=== PATIENT | male | born 1970 | race Caucasian/White ===

== ENCOUNTER 2016-12-01 17:00 | Emergency (ER) | payer OTHER ==
[~2016-12-01] VITALS: Ht 162.5 cm; Wt 68.0 kg
[~2016-12-01 17:00] MED LIST: ANUSOL-HC25 MG R; CIPROFLOXACIN500 MG PO; CYCLOBENZAPRINE10 MG PO; FENOFIBRATE145 M1 PO; LEVOTHYROXIN0.025 M1 PO; MIRTAZAPINE15 M2 PO; NAPROSYN500 MG PO; PRAVACHOL80 M1 PO; PRILOSEC20 M1 PO; REGLAN5 MG PO; SAPHRIS5 M1 SL; VENTOLIN H0.09 MG/AC INH
[2016-12-01 17:49] LABS: BASO # 0.1 10*3/uL (0.0-0.1); BASO % 0.3 % (0.0-1.0); EOS # 0.1 10*3/uL (0.0-0.4); EOS % 0.6 % (1.0-4.0); HEMATOCRIT 57.2 % (42.0-52.0); HEMOGLOBIN 19.9 g/dl (14.0-18.0); IG # 0.1 10*3/uL (0.0-0.1); LYMPH # 2.1 10*3/uL (1.3-4.4); LYMPH % 9.4 % (27.0-41.0); MEAN CELL VOLUME 86.3 fl (80.0-94.0); MEAN CORPUSCULAR HGB CONC 34.8 g/dl (33.0-37.0); MEAN PLATELET VOLUME 9.1 fl (9.6-12.3); MONO # 0.8 10*3/uL (0.1-1.0); MONO % 3.7 % (3.0-9.0); NEUT # 18.6 10*3/uL (2.3-7.9); NEUT % 85.4 % (47.0-73.0); PLATELET COUNT AUTOMATED 348 10*3/uL (130-400); RED BLOOD COUNT 6.63 10*6/uL (4.50-5.90); WHITE BLOOD COUNT 21.8 10*3/uL (4.8-10.8)
[2016-12-01 18:03] LABS: ALBUMIN 4.6 gm/dl (3.1-4.5); ALKALINE PHOSPHATASE 154 U/L (45-117); BILIRUBIN, TOTAL 0.7 mg/dl (0.2-1.0); BUN 8 mg/dl (7-24); CARBON DIOXIDE 23 mmol/L (21-32); CHLORIDE 99 mmol/L (98-107); EST GLOM FILT AFRICAN AMERICAN > 60 ml/min; GLUCOSE 111 mg/dL (65-99); POTASSIUM 5.1 mmol/L (3.5-5.1); SGOT/AST 44 IU/L (3-35); SGPT/ALT 58 U/L (12-78); SODIUM 137 mmol/L (136-145); TOTAL PROTEIN 9.2 gm/dL (6.4-8.2)
[2016-12-01 19:47] LABS: BILIRUBIN 2+ (NEGATIVE); BLOOD 3+ (NEGATIVE); CLARITY CLOUDY (CLEAR); COLOR YELLOW (YELLOW); GLUCOSE NEGATIVE (NEGATIVE); KETONE 1+ (NEGATIVE); LEUKO ESTERASE NEGATIVE (NEGATIVE); NITRITE NEGATIVE (NEGATIVE); PROTEIN 3+ (NEGATIVE); SPECIFIC GRAVITY 1.025 (1.005-1.030)
[2016-12-01] MEDS ORDERED: ZOFRAN ODT4 MG SL (20:10)
[2016-12-01 20:14] LABS: HYALINE CAST TNTC; MUCOUS TRACE; URINE REFLEX COMMENT YES (NO)
== END 2016-12-01 20:27 | disposition home or self-care (01) ==
LOC: ED 17:00
PROVIDERS: Nurse Practitioner Family
DX: K52.9 Noninfective gastroenteritis and colitis, unspecified (principal); F17.200 Nicotine dependence, unspecified, uncomplicated; Z88.0 Allergy status to penicillin; Z79.899 Other long term (current) drug therapy

== ENCOUNTER 2016-12-10 07:21 | Emergency (ER) | payer OTHER ==
[~2016-12-10] VITALS: Ht 170.1 cm; Wt 77.1 kg
[~2016-12-10 07:21] MED LIST changes: +ZOFRAN ODT4 MG SL
== END 2016-12-10 09:52 | disposition home or self-care (01) ==
LOC: ED 07:21
DX: S01.81XA Laceration without foreign body of other part of head, initial encounter (principal); Y04.8XXA Assault by other bodily force, initial encounter; Y93.89 Activity, other specified; Y92.89 Other specified places as the place of occurrence of the external cause; Y99.8 Other external cause status

== ENCOUNTER 2017-05-07 23:18 | Emergency (ER) | payer OTHER ==
[~2017-05-07] VITALS: Ht 172.7 cm; Wt 79.4 kg
[2017-05-07 23:35] LABS: HEMATOCRIT 42.4 % (42.0-52.0); HEMOGLOBIN 14.5 g/dl (14.0-18.0); MEAN CELL VOLUME 88.5 fl (80.0-94.0); MEAN CORPUSCULAR HGB 30.3 pg (27.0-31.0); MEAN CORPUSCULAR HGB CONC 34.2 g/dl (33.0-37.0); MEAN PLATELET VOLUME 9.8 fl (9.6-12.3); PLATELET COUNT AUTOMATED 230 10*3/uL (130-400); RED BLOOD COUNT 4.79 10*6/uL (4.50-5.90); RED CELL DISTRI WIDTH 13.2 % (0-14.5); WHITE BLOOD COUNT 15.4 10*3/uL (4.8-10.8)
[2017-05-07 23:45] LABS: ACT PARTIAL THROMBO TIME 28.3 SECONDS (20.8-31.5)
[2017-05-07 23:54] LABS: BILIRUBIN NEGATIVE (NEGATIVE); BLOOD TRACE-INTACT (NEGATIVE); CLARITY SL CLOUDY (CLEAR); COLOR YELLOW (YELLOW); GLUCOSE NEGATIVE (NEGATIVE); KETONE NEGATIVE (NEGATIVE); LEUKO ESTERASE NEGATIVE (NEGATIVE); NITRITE NEGATIVE (NEGATIVE); SPECIFIC GRAVITY <= 1.005 (1.005-1.030); UROBILINOGEN 0.2 E.U./dl (0.2-1.0)
[2017-05-07 23:55] LABS: PLATELET SUFFICIENCY NORMAL (NORMAL); TOTAL CELLS COUNTED 100 #CELLS
[2017-05-08 00:02] LABS: BACTERIA 1+; EPITHELIAL CELLS 0-2; RBC 0-2 rbc/hpf (0-2); WBC 0-2 wbc/hpf (0-5)
[2017-05-08 00:03] LABS: URINE AMPHETAMINES < 1000 (1000ng/ml); URINE BARBITURATES < 200 (200ng/ml); URINE BENZODIAZEPINES < 200 (200ng/ml); URINE CANNABINOIDS (THC) < 50 (50ng/ml); URINE COCAINE < 300 (300ng/ml); URINE METHADONE < 300 (300ng/ml); URINE OPIATES < 300 (300ng/ml)
[2017-05-08 00:05] LABS: URINE PHENCYCLIDINE < 25 (25ng/ml)
[2017-05-08 00:14] LABS: ALBUMIN 3.5 gm/dl (3.1-4.5); ALKALINE PHOSPHATASE 120 U/L (45-117); BUN 6 mg/dl (7-24); CHLORIDE 99 mmol/L (98-107); CREATININE 0.74 mg/dL (0.70-1.30); POTASSIUM 3.6 mmol/L (3.5-5.1); SGOT/AST 48 IU/L (3-35); SGPT/ALT 67 U/L (12-78); SODIUM 133 mmol/L (136-145); TOTAL PROTEIN 7.1 gm/dL (6.4-8.2)
[2017-05-08 00:22] LABS: TROPONIN I < 0.015 ng/ml (<0.045)
== END 2017-05-08 00:58 | disposition left against medical advice (07) ==
LOC: ED 23:18
PROVIDERS: Emergency Medicine
DX: R07.89 Other chest pain (principal); F10.129 Alcohol abuse with intoxication, unspecified; J44.9 Chronic obstructive pulmonary disease, unspecified; E78.5 Hyperlipidemia, unspecified; E03.9 Hypothyroidism, unspecified; F17.200 Nicotine dependence, unspecified, uncomplicated; Z88.0 Allergy status to penicillin; Z79.899 Other long term (current) drug therapy

== ENCOUNTER 2017-06-26 09:41 | Emergency (ER) | payer OTHER ==
[~2017-06-26] VITALS: Ht 170.1 cm; Wt 78.9 kg
[2017-06-26] MEDS ORDERED: VITAMIN B-1100 M1 PO (09:45)
[2017-06-26] MEDS ORDERED: VITAMIN D-32000 UNIT PO (09:46)
[2017-06-26] MEDS ORDERED: NATURE'S BLEND F1 MG PO (09:47)
[2017-06-26] MEDS ORDERED: Bactroban Oint22 GM T (10:04)
== END 2017-06-26 10:27 | disposition home or self-care (01) ==
LOC: ED 09:41
DX: S50.861A Insect bite (nonvenomous) of right forearm, initial encounter (principal); R03.0 Elevated blood-pressure reading, without diagnosis of hypertension; F17.200 Nicotine dependence, unspecified, uncomplicated; E78.5 Hyperlipidemia, unspecified; E03.9 Hypothyroidism, unspecified; Z79.899 Other long term (current) drug therapy; Z88.0 Allergy status to penicillin; W57.XXXA Bitten or stung by nonvenomous insect and other nonvenomous arthropods, initial encounter; Y93.9 Activity, unspecified; Y92.9 Unspecified place or not applicable; Y99.9 Unspecified external cause status

== ENCOUNTER 2018-06-06 20:06 | Emergency (ER) | payer OTHER ==
[~2018-06-06] VITALS: Ht 167.6 cm; Wt 78.9 kg
[~2018-06-06 20:06] MED LIST changes: +Bactroban Oint22 GM T; +NATURE'S BLEND F1 MG PO; +VITAMIN B-1100 M1 PO; +VITAMIN D-32000 UNIT PO
[2018-06-06] MEDS ORDERED: KEFLEX500 M1 PO (20:12)
[2018-06-06] MEDS ORDERED: Tobrex Ophth S2.5 ML OPH (20:12)
== END 2018-06-06 20:23 | disposition home or self-care (01) ==
LOC: ED 20:06
DX: H00.011 Hordeolum externum right upper eyelid (principal); R03.0 Elevated blood-pressure reading, without diagnosis of hypertension; J44.9 Chronic obstructive pulmonary disease, unspecified; E78.5 Hyperlipidemia, unspecified; E03.9 Hypothyroidism, unspecified; F17.200 Nicotine dependence, unspecified, uncomplicated; Z88.0 Allergy status to penicillin; Z79.899 Other long term (current) drug therapy; G89.29 Other chronic pain

== ENCOUNTER 2018-08-10 12:17 | Inpatient (IN) | payer OTHER ==
[~2018-08-10] VITALS: Ht 170.1 cm; Wt 81.6 kg
--- NOTE | ~2018-08-10 | EKG ---
[place], [place] ELECTROCARDIOGRAM REPORT NAME: ALCIRA ARVIZU UNIT #: [id number] ROOM: 505 DOCTOR: AVTAR DRAFT REPORT BIRTHDATE: [birth year] [facility] Test Date: 2018-08-10 Test Time: 13:26:16 Pat Name: ALCIRA ARVIZU Department: Room: 505 Gender: M General Agent: Jennifer Sheriff : 1970 Requested By: COLBY BORJA Order Number: [id number] Reading MD: Nikolas Velázquez MD Measurements Intervals Johnson Rate: 83 P: 58 [place]: 170 QRS: 16 QRSD: 94 T: 48 QT: 353 QTc: 415 Interpretive Statements Sinus rhythm Electronically Signed On 08-12-2018 18:44:18 PST by Nikolas Velázquez MD CM:EKGRPT:ELECTROCARDIOGRAM REPORT [id number] COLBY STONER DRAFT REPORT COLBY BORJA DO
[2018-08-10 12:17] VITALS: BP 154/92
[~2018-08-10 12:17] MED LIST changes: +KEFLEX500 M1 PO; +Tobrex Ophth S2.5 ML OPH
[2018-08-10 14:02] LABS: HEMATOCRIT 50.8 % (42.0-52.0); HEMOGLOBIN 16.6 g/dl (14.0-18.0); MEAN CELL VOLUME 86.4 fl (80.0-94.0); MEAN CORPUSCULAR HGB 28.2 pg (27.0-31.0); MEAN CORPUSCULAR HGB CONC 32.7 g/dl (33.0-37.0); MEAN PLATELET VOLUME 9.4 fl (9.6-12.3); PLATELET COUNT AUTOMATED 313 10*3/uL (130-400); RED BLOOD COUNT 5.88 10*6/uL (4.50-5.90); RED CELL DISTRI WIDTH 14.5 % (0-14.5)
[2018-08-10 14:22] LABS: ALBUMIN 3.2 gm/dl (3.1-4.5); ALKALINE PHOSPHATASE 142 U/L (45-117); BUN 7 mg/dl (7-24); CHLORIDE 100 mmol/L (98-107); CREATININE 0.79 mg/dL (0.70-1.30); POTASSIUM 4.1 mmol/L (3.5-5.1); SGOT/AST 45 IU/L (3-35); SGPT/ALT 39 U/L (12-78); SODIUM 133 mmol/L (136-145); TOTAL PROTEIN 7.4 gm/dL (6.4-8.2)
[2018-08-10 14:23] LABS: ATYPICAL LYMPHS 1 % (0-0); PLATELET SUFFICIENCY NORMAL (NORMAL); TOTAL CELLS COUNTED 100 #CELLS; TROPONIN I < 0.015 ng/ml (<0.045)
[2018-08-10 14:55] VITALS: BP 142/87
[2018-08-10 16:11] VITALS: BP 149/83
[2018-08-10 16:42] LABS: ABG BASE EXCESS -0.2 mmol/L (-2.0-2.0); ABG HCO3 24.3 mmol/l (22-26); ABG O2 SATURATION 74.7 % (95-97); ARTERIAL BLOOD GAS PH 7.389 (7.35-7.45); ARTERIAL BLOOD GAS PO2 41.4 mmHg (80-90)
[2018-08-10 17:40] VITALS: BP 150/89
[2018-08-10 20:00] VITALS: BP 147/94
[2018-08-11] VITALS: BP 137/82
[2018-08-11 06:32] LABS: BASO % 0.1 % (0.0-1.0); EOS % 0.1 % (1.0-4.0); HEMATOCRIT 48.8 % (42.0-52.0); HEMOGLOBIN 15.8 g/dl (14.0-18.0); LYMPH # 2.3 10*3/uL (1.3-4.4); LYMPH % 11.7 % (27.0-41.0); MEAN CELL VOLUME 86.7 fl (80.0-94.0); MEAN CORPUSCULAR HGB 28.1 pg (27.0-31.0); MEAN CORPUSCULAR HGB CONC 32.4 g/dl (33.0-37.0); MEAN PLATELET VOLUME 9.9 fl (9.6-12.3); MONO # 0.3 10*3/uL (0.1-1.0); MONO % 1.5 % (3.0-9.0); NEUT # 16.9 10*3/uL (2.3-7.9); PLATELET COUNT AUTOMATED 317 10*3/uL (130-400); RED BLOOD COUNT 5.63 10*6/uL (4.50-5.90); RED CELL DISTRI WIDTH 14.5 % (0-14.5); WHITE BLOOD COUNT 19.7 10*3/uL (4.8-10.8)
[2018-08-11 06:43] LABS: ALBUMIN 3.3 gm/dl (3.1-4.5); BUN 5 mg/dl (7-24); CHLORIDE 98 mmol/L (98-107); POTASSIUM 4.2 mmol/L (3.5-5.1); SODIUM 132 mmol/L (136-145)
[2018-08-11 06:51] LABS: ALKALINE PHOSPHATASE 141 U/L (45-117); CHOLESTEROL 138 mg/dL (<200); CREATININE 0.72 mg/dL (0.70-1.30); FREE T4 0.86 ng/dl (0.76-1.46); HDL CHOLESTEROL 45 mg/dl (40-60); LDL CHOLESTEROL 82 mg/dL (9-159); PHOSPHOROUS 2.5 mg/dL (2.5-4.9); SGOT/AST 62 IU/L (3-35); SGPT/ALT 71 U/L (12-78); TOTAL PROTEIN 7.1 gm/dL (6.4-8.2); TRIGLYCERIDES 54 mg/dl (<150); VLDL CHOLESTEROL 11 mg/dL (6-40)
[2018-08-11 07:45] LABS: VITAMIN D, 25-HYDROXY 30.8 ng/mL (30-100)
[2018-08-11 08:00] VITALS: BP 122/86
[2018-08-11] MEDS ORDERED: ABILIFY5 MG PO (10:32)
[2018-08-11 12:00] VITALS: BP 139/81; BP 140/55
[2018-08-11] MEDS ORDERED: ZITHROMAX250 MG PO (12:10)
[2018-08-11] MEDS ORDERED: PREDNISONE10 MG PO (12:10)
== END 2018-08-11 12:36 | disposition home or self-care (01) | DRG 871 ==
LOC: ED 12:17 → EDHOLD 15:13 → 5E 15:13
PROVIDERS: Internal Medicine
DX: A41.9 Sepsis, unspecified organism (principal); J18.9 Pneumonia, unspecified organism; J96.01 Acute respiratory failure with hypoxia; E87.1 Hypo-osmolality and hyponatremia; J44.1 Chronic obstructive pulmonary disease with (acute) exacerbation; J44.0 Chronic obstructive pulmonary disease with (acute) lower respiratory infection; F41.9 Anxiety disorder, unspecified; F31.9 Bipolar disorder, unspecified; R74.0 Nonspecific elevation of levels of transaminase and lactic acid dehydrogenase [LDH]; R74.8 Abnormal levels of other serum enzymes; E78.5 Hyperlipidemia, unspecified; M54.9 Dorsalgia, unspecified; G89.29 Other chronic pain; R03.0 Elevated blood-pressure reading, without diagnosis of hypertension; D72.823 Leukemoid reaction; F17.210 Nicotine dependence, cigarettes, uncomplicated; E03.9 Hypothyroidism, unspecified; K76.0 Fatty (change of) liver, not elsewhere classified; F10.10 Alcohol abuse, uncomplicated; Z71.6 Tobacco abuse counseling; Z80.1 Family history of malignant neoplasm of trachea, bronchus and lung; Z82.49 Family history of ischemic heart disease and other diseases of the circulatory system; Z80.3 Family history of malignant neoplasm of breast; Z88.0 Allergy status to penicillin; Z79.899 Other long term (current) drug therapy

== ENCOUNTER 2019-01-03 10:27 | Emergency (ER) | payer OTHER ==
[~2019-01-03] VITALS: Ht 170.1 cm; Wt 81.2 kg
[~2019-01-03 10:27] MED LIST changes: +ABILIFY5 MG PO; +PREDNISONE10 MG PO; +ZITHROMAX250 MG PO
== END 2019-01-03 11:58 | disposition home or self-care (01) ==
LOC: ED 10:27
DX: S46.911A Strain of unspecified muscle, fascia and tendon at shoulder and upper arm level, right arm, initial encounter (principal); F17.200 Nicotine dependence, unspecified, uncomplicated; Z88.0 Allergy status to penicillin; Z79.899 Other long term (current) drug therapy; Z79.2 Long term (current) use of antibiotics; X58.XXXA Exposure to other specified factors, initial encounter; Y93.89 Activity, other specified; Y92.89 Other specified places as the place of occurrence of the external cause; Y99.8 Other external cause status

== ENCOUNTER 2020-03-08 10:38 | Emergency (ER) | payer OTHER ==
[~2020-03-08] VITALS: Ht 170.1 cm; Wt 77.1 kg
== END 2020-03-08 14:13 | disposition home or self-care (01) ==
LOC: ED 10:38
DX: M79.641 Pain in right hand (principal); F31.9 Bipolar disorder, unspecified; J44.9 Chronic obstructive pulmonary disease, unspecified; Z88.0 Allergy status to penicillin; Z79.899 Other long term (current) drug therapy

== ENCOUNTER 2020-03-27 11:03 | Emergency (ER) | payer OTHER ==
[~2020-03-27] VITALS: Ht 167.6 cm; Wt 77.1 kg
[2020-03-27] MEDS ORDERED: VISTARIL25 MG PO (11:47)
[2020-03-27] MEDS ORDERED: PREDNISONE20 M1 PO (11:47)
== END 2020-03-27 11:57 | disposition home or self-care (01) ==
LOC: ED 11:03
DX: L25.9 Unspecified contact dermatitis, unspecified cause (principal); J44.9 Chronic obstructive pulmonary disease, unspecified; F31.9 Bipolar disorder, unspecified; F17.200 Nicotine dependence, unspecified, uncomplicated; Z88.0 Allergy status to penicillin; Z79.2 Long term (current) use of antibiotics; Z79.899 Other long term (current) drug therapy

== ENCOUNTER 2021-03-27 09:40 | Emergency (ER) | payer OTHER ==
[~2021-03-27] VITALS: Ht 167.6 cm; Wt 75.3 kg
[~2021-03-27 09:40] MED LIST changes: +PREDNISONE20 M1 PO; +VISTARIL25 MG PO
[2021-03-27 10:16] LABS: BASO # 0.1 10*3/uL (0.0-0.1); BASO % 0.4 % (0.0-1.0); EOS # 0.3 10*3/uL (0.0-0.4); EOS % 1.7 % (1.0-4.0); HEMATOCRIT 46.1 % (42.0-52.0); LYMPH # 4.9 10*3/uL (1.3-4.4); LYMPH % 31.4 % (27.0-41.0); MEAN CELL VOLUME 85.7 fl (80.0-94.0); MEAN CORPUSCULAR HGB 29.7 pg (27.0-31.0); MEAN CORPUSCULAR HGB CONC 34.7 g/dl (33.0-37.0); MEAN PLATELET VOLUME 8.7 fl (9.6-12.3); MONO # 0.7 10*3/uL (0.1-1.0); MONO % 4.7 % (3.0-9.0); NEUT # 9.6 10*3/uL (2.3-7.9); NEUT % 61.4 % (47.0-73.0); PLATELET COUNT AUTOMATED 339 10*3/uL (130-400); RED BLOOD COUNT 5.38 10*6/uL (4.50-5.90); RED CELL DISTRI WIDTH 12.9 % (0-14.5); WHITE BLOOD COUNT 15.6 10*3/uL (4.8-10.8)
[2021-03-27 10:37] LABS: ALKALINE PHOSPHATASE 147 U/L (45-117); BUN 5 mg/dl (7-24); CHLORIDE 100 mmol/L (98-107); CREATININE 0.78 mg/dL (0.70-1.30); LIPASE 122 U/L (73-393); SGOT/AST 38 IU/L (3-35); SGPT/ALT 55 U/L (12-78); SODIUM 130 mmol/L (136-145); TOTAL PROTEIN 7.6 gm/dL (6.4-8.2)
[2021-03-27 10:38] LABS: TROPONIN I < 0.015 ng/ml (<0.045)
[2021-03-27] MEDS ORDERED: Motrin,Rufen800 MG PO (13:13)
== END 2021-03-27 13:25 | disposition home or self-care (01) ==
LOC: ED 09:40
PROVIDERS: Emergency Medicine
DX: S29.011A Strain of muscle and tendon of front wall of thorax, initial encounter (principal); J44.9 Chronic obstructive pulmonary disease, unspecified; F17.200 Nicotine dependence, unspecified, uncomplicated; Z98.890 Other specified postprocedural states; Z79.899 Other long term (current) drug therapy; Z79.2 Long term (current) use of antibiotics; Z88.0 Allergy status to penicillin; X50.1XXA Overexertion from prolonged static or awkward postures, initial encounter; Y93.89 Activity, other specified; Y92.89 Other specified places as the place of occurrence of the external cause; Y99.9 Unspecified external cause status

== ENCOUNTER → 2021-07-07 | Outpatient (CLI) | payer OTHER ==
[~2021-07-07] MED LIST changes: +Motrin,Rufen800 MG PO
== END | disposition home or self-care (01) ==
LOC: US 09:28
PROVIDERS: ATTEND Physician Assistant
DX: K76.0 Fatty (change of) liver, not elsewhere classified (principal); K70.9 Alcoholic liver disease, unspecified; R94.5 Abnormal results of liver function studies

== ENCOUNTER → 2021-08-21 | Day surgery (SDC) | payer OTHER ==
[~2021-08-21] VITALS: Ht 167.6 cm; Wt 84.8 kg
[~2021-08-21] MED LIST changes: +PROVENTIL HFA6.7 GM INH; +TRAZODONE50 MG PO
[2021-08-21 09:29] VITALS: BP 103/73
[2021-08-21 09:44] VITALS: BP 98/57
[2021-08-21 09:59] VITALS: BP 115/74
== END | disposition home or self-care (01) ==
LOC: SDC 08-18 10:15
PROVIDERS: ATTEND Surgery
DX: Z12.11 Encounter for screening for malignant neoplasm of colon (principal); Z86.010 Personal history of colon polyps; K57.30 Diverticulosis of large intestine without perforation or abscess without bleeding; K62.1 Rectal polyp; F31.9 Bipolar disorder, unspecified; J44.9 Chronic obstructive pulmonary disease, unspecified; E78.5 Hyperlipidemia, unspecified; G47.00 Insomnia, unspecified; F41.9 Anxiety disorder, unspecified; E03.9 Hypothyroidism, unspecified; I25.2 Old myocardial infarction; I25.10 Atherosclerotic heart disease of native coronary artery without angina pectoris; F17.210 Nicotine dependence, cigarettes, uncomplicated; Z88.0 Allergy status to penicillin; Z79.899 Other long term (current) drug therapy; Z20.822 Contact with and (suspected) exposure to COVID-19

== ENCOUNTER 2022-02-16 20:52 | Emergency (ER) | payer OTHER ==
[~2022-02-16] VITALS: Wt 77.1 kg
== END 2022-02-17 02:46 | disposition left against medical advice (07) ==
LOC: ED 20:52
DX: S29.011A Strain of muscle and tendon of front wall of thorax, initial encounter (principal); S20.211A Contusion of right front wall of thorax, initial encounter; Z88.0 Allergy status to penicillin; Z79.899 Other long term (current) drug therapy; J45.909 Unspecified asthma, uncomplicated; J44.9 Chronic obstructive pulmonary disease, unspecified; E78.5 Hyperlipidemia, unspecified; F17.200 Nicotine dependence, unspecified, uncomplicated; X50.1XXA Overexertion from prolonged static or awkward postures, initial encounter; Y93.89 Activity, other specified; Y92.89 Other specified places as the place of occurrence of the external cause; Y99.8 Other external cause status

== ENCOUNTER 2022-08-31 08:17 | Emergency (ER) | payer OTHER ==
[~2022-08-31] VITALS: Ht 167.6 cm; Wt 78.9 kg
[2022-08-31] MEDS ORDERED: ONDANSETRON4 MG SL (10:34)
== END 2022-08-31 10:41 | disposition home or self-care (01) ==
LOC: ED 08:17
DX: B34.9 Viral infection, unspecified (principal); Z88.1 Allergy status to other antibiotic agents; Z20.822 Contact with and (suspected) exposure to COVID-19; Z98.890 Other specified postprocedural states; F10.10 Alcohol abuse, uncomplicated; Z87.891 Personal history of nicotine dependence

== ENCOUNTER 2023-02-04 09:38 | Emergency (ER) | payer OTHER ==
[~2023-02-04] VITALS: Wt 79.4 kg
[~2023-02-04 09:38] MED LIST changes: +ONDANSETRON4 MG SL
[2023-02-04] MEDS ORDERED: TRAMADOL HCL50 MG PO (10:57)
[2023-02-04] MEDS ORDERED: CYCLOBENZAPRINE5 M3 PO (10:57)
== END 2023-02-04 11:02 | disposition home or self-care (01) ==
LOC: ED 09:38
DX: M54.40 Lumbago with sciatica, unspecified side (principal); M25.562 Pain in left knee; M25.561 Pain in right knee; J44.9 Chronic obstructive pulmonary disease, unspecified; Z88.0 Allergy status to penicillin; Z98.890 Other specified postprocedural states; F10.10 Alcohol abuse, uncomplicated; Z72.0 Tobacco use

== ENCOUNTER 2024-07-02 15:30 | Emergency (ER) | payer OTHER ==
[~2024-07-02] VITALS: Ht 165.1 cm; Wt 70.5 kg
[~2024-07-02 15:30] MED LIST changes: +CYCLOBENZAPRINE5 M3 PO; +TRAMADOL HCL50 MG PO
[2024-07-02] MEDS ORDERED: STIOLTO RESPIMAT4 GM INH (15:58)
[2024-07-02] MEDS ORDERED: Albuterol Sulf/Ipratropium 3 ML VIAL NEB ONE (16:05)
[2024-07-02 16:24] LABS: BASO # 0.1 10*3/uL (0.0-0.1); BASO % 0.9 % (0.0-1.0); EOS # 0.1 10*3/uL (0.0-0.4); EOS % 0.9 % (1.0-4.0); HEMATOCRIT 46.6 % (42.0-52.0); LYMPH # 2.2 10*3/uL (1.3-4.4); LYMPH % 26.7 % (27.0-41.0); MEAN CELL VOLUME 87.1 fl (80.0-94.0); MEAN CORPUSCULAR HGB 30.5 pg (27.0-31.0); MEAN PLATELET VOLUME 8.7 fl (9.6-12.3); MONO # 0.9 10*3/uL (0.1-1.0); MONO % 10.6 % (3.0-9.0); NEUT # 4.9 10*3/uL (2.3-7.9); NEUT % 60.4 % (47.0-73.0); PLATELET COUNT AUTOMATED 295 10*3/uL (130-400); RED BLOOD COUNT 5.35 10*6/uL (4.50-5.90); RED CELL DISTRI WIDTH 13.2 % (0-14.5)
[2024-07-02 16:41] LABS: BUN < 5 mg/dl (9-23); CHLORIDE 95 mmol/L (98-107); POTASSIUM 3.3 mmol/L (3.4-5.1)
[2024-07-02] MEDS ORDERED: SODIUM CHLORIDE 0.9% 1,000 ML IV ONE (17:05)
[2024-07-02] MEDS ORDERED: POTASSIUM CHLORIDE 20 MEQ TAB PO ONE (17:05)
[2024-07-02] MEDS ORDERED: AZITHROMYCIN 250 MG TAB PO ONE (18:35)
[2024-07-02] MEDS ORDERED: ZITHROMAX250 MG PO (18:36)
== END 2024-07-02 18:51 | disposition home or self-care (01) ==
LOC: ED 15:30
PROVIDERS: Nurse Practitioner Family
DX: J98.4 Other disorders of lung (principal); Z20.822 Contact with and (suspected) exposure to COVID-19; F17.210 Nicotine dependence, cigarettes, uncomplicated; Z88.0 Allergy status to penicillin; Z79.899 Other long term (current) drug therapy; Z98.890 Other specified postprocedural states

== ENCOUNTER 2025-02-23 21:07 | Emergency (ER) | payer OTHER ==
[~2025-02-23] VITALS: Ht 165.1 cm; Wt 73.9 kg
[~2025-02-23 21:07] MED LIST changes: +STIOLTO RESPIMAT4 GM INH
[2025-02-23 21:39] LABS: HEMATOCRIT 41.8 % (42.0-52.0); MANUAL DIFF REFLEX YES; MEAN CELL VOLUME 86.2 fl (80.0-94.0); MEAN CORPUSCULAR HGB 29.5 pg (27.0-31.0); MEAN CORPUSCULAR HGB CONC 34.2 g/dl (33.0-37.0); MEAN PLATELET VOLUME 8.3 fl (9.6-12.3); PLATELET COUNT AUTOMATED 316 10*3/uL (130-400); RED BLOOD COUNT 4.85 10*6/uL (4.50-5.90); RED CELL DISTRI WIDTH 12.9 % (0-14.5); WHITE BLOOD COUNT 12.8 10*3/uL (4.8-10.8)
[2025-02-23 21:55] LABS: CHLORIDE 91 mmol/L (98-107); POTASSIUM 3.5 mmol/L (3.4-5.1)
[2025-02-23] MEDS ORDERED: Albuterol Sulf/Ipratropium 3 ML VIAL NEB ONE (22:00)
[2025-02-23 22:07] LABS: PLATELET SUFFICIENCY NORMAL (NORMAL); TOTAL CELLS COUNTED 100 #CELLS
[2025-02-23 22:08] LABS: BURR CELLS FEW
[2025-02-23 22:13] LABS: BUN < 5 mg/dl (9-23)
[2025-02-23] MEDS ORDERED: STIOLTO RESPIMAT4 GM INH (22:36)
[2025-02-23] MEDS ORDERED: predniSONE 20 MG TAB PO ONE (22:40)
[2025-02-23] MEDS ORDERED: PREDNISONE50 MG PO (22:40)
[2025-02-23] MEDS ORDERED: AZITHROMYCIN 250 MG TAB PO ONE (22:40)
[2025-02-24] MEDS ORDERED: TRAZODONE100 MG PO (16:22)
[2025-02-24] MEDS ORDERED: PRAVASTATIN SOD20 MG PO (16:22)
[2025-02-24] MEDS ORDERED: ARIPIPRAZOLE15 MG PO (16:22)
[2025-02-24] MEDS ORDERED: CITALOPRAM20 MG PO (16:23)
[2025-02-24] MEDS ORDERED: LAMICTAL25 MG PO (20:48)
== END 2025-02-23 23:12 | disposition home or self-care (01) ==
LOC: ED 21:07
PROVIDERS: Nurse Practitioner Family
DX: J44.1 Chronic obstructive pulmonary disease with (acute) exacerbation (principal); J98.4 Other disorders of lung; F31.9 Bipolar disorder, unspecified; F17.200 Nicotine dependence, unspecified, uncomplicated; Z79.899 Other long term (current) drug therapy; Z88.0 Allergy status to penicillin; Z98.890 Other specified postprocedural states

== ENCOUNTER 2025-02-24 15:54 | Inpatient (IN) | payer OTHER ==
[~2025-02-24] VITALS: Ht 166.3 cm; Wt 72.8 kg
[~2025-02-24 15:54] MED LIST changes: +PREDNISONE50 MG PO
[2025-02-24 16:14] LABS: HEMATOCRIT 41.6 % (42.0-52.0); MEAN CELL VOLUME 86.1 fl (80.0-94.0); MEAN CORPUSCULAR HGB 30.2 pg (27.0-31.0); MEAN CORPUSCULAR HGB CONC 35.1 g/dl (33.0-37.0); MEAN PLATELET VOLUME 8.7 fl (9.6-12.3); PLATELET COUNT AUTOMATED 345 10*3/uL (130-400); RED BLOOD COUNT 4.83 10*6/uL (4.50-5.90); RED CELL DISTRI WIDTH 12.9 % (0-14.5); WHITE BLOOD COUNT 17.7 10*3/uL (4.8-10.8)
[2025-02-24 16:17] VITALS: BP 131/73
[2025-02-24 16:21] LABS: MANUAL DIFF REFLEX YES
[2025-02-24] MEDS ORDERED: TRAZODONE100 MG PO (16:22)
[2025-02-24] MEDS ORDERED: PRAVASTATIN SOD20 MG PO (16:22)
[2025-02-24] MEDS ORDERED: ARIPIPRAZOLE15 MG PO (16:22)
[2025-02-24] MEDS ORDERED: CITALOPRAM20 MG PO (16:23)
[2025-02-24 16:26] LABS: ACT PARTIAL THROMBO TIME 28.6 SECONDS (20.0-32.1)
[2025-02-24 16:34] LABS: CHLORIDE 89 mmol/L (98-107); POTASSIUM 4.1 mmol/L (3.4-5.1)
[2025-02-24 16:36] LABS: BUN < 5 mg/dl (9-23); TOTAL CELLS COUNTED 100 #CELLS
[2025-02-24 16:37] LABS: PLATELET SUFFICIENCY NORMAL (NORMAL)
[2025-02-24 16:38] LABS: BURR CELLS FEW
[2025-02-24] MEDS ORDERED: ASPIRIN 325 MG TAB PO ONE (18:25)
[2025-02-24] MEDS ORDERED: SODIUM CHLORIDE 0.9% 1,000 ML IV ONE (18:25)
[2025-02-24] MEDS ORDERED: MAGNESIUM SULFATE 100 ML IV ONE (18:25)
[2025-02-24 18:45] VITALS: BP 141/73
[2025-02-24] MEDS ORDERED: ACETAMINOPHEN 650 MG SUPP R PRN (18:55)
[2025-02-24] MEDS ORDERED: Magnesium Hydroxide 30 ML UDC PO PRN (18:55)
[2025-02-24] MEDS ORDERED: ACETAMINOPHEN 325 MG TAB PO PRN (18:55)
[2025-02-24] MEDS ORDERED: BISACODYL 10 MG SUPP R PRN (18:55)
[2025-02-24] MEDS ORDERED: Ondansetron Hydrochloride 4 MG/2 ML VIAL IV PRN (18:55)
[2025-02-24] MEDS ORDERED: TEMAZEPAM 15 MG CAP PO PRN (18:55)
[2025-02-24] MEDS ORDERED: BISACODYL 5 MG TAB PO PRN (18:55)
[2025-02-24] MEDS ORDERED: Acetaminophen/Hydrocodone 5 MG/325 MG TABLET PO PRN (18:55)
[2025-02-24 20:00] VITALS: BP 144/79
[2025-02-24] MEDS ORDERED: HEPARIN SODIUM 250 ML IV SCH (20:35)
[2025-02-24] MEDS ORDERED: ASPIRIN, CHEWABLE 81 MG TAB PO ONE (20:35)
[2025-02-24] MEDS ORDERED: Albuterol Sulf/Ipratropium 3 ML VIAL NEB PRN (20:40)
[2025-02-24] MEDS ORDERED: LAMICTAL25 MG PO (20:48)
[2025-02-24] MEDS ORDERED: ATORVASTATIN CALCIUM 40 MG TABLET PO SCH (22:00)
[2025-02-24] MEDS ORDERED: methylPREDNISolone sod succ 40 MG VIAL IV SCH (22:00)
[2025-02-24] MEDS ORDERED: TRAZODONE HYDROCHLORIDE 150 MG PO SCH (22:00)
[2025-02-24] MEDS ORDERED: Doxycycline Hyclate 100 MG in SODIUM CHLORIDE 0.9% 250 ML IV SCH (22:00)
[2025-02-24] MEDS ORDERED: ARIPiprazole 5 MG TAB PO SCH (22:00)
[2025-02-24 22:40] VITALS: BP 132/70
[2025-02-25] VITALS: BP 135/76
[2025-02-25] MEDS ORDERED: Levothyroxine Sodium 25 MCG TAB PO SCH (06:00)
[2025-02-25 06:08] LABS: ALKALINE PHOSPHATASE 158 U/L (46-116); BUN 7 mg/dl (9-23); CHLORIDE 97 mmol/L (98-107); CHOLESTEROL 116 mg/dL (<200); FREE T4 1.07 ng/dl (0.89-1.76); LDL CHOLESTEROL 51 mg/dL (9-159); POTASSIUM 4.6 mmol/L (3.4-5.1); SGPT/ALT 178 U/L (5-49); TOTAL PROTEIN 6.5 gm/dL (6.0-8.0); TRIGLYCERIDES 56 mg/dl (<150)
[2025-02-25 06:12] LABS: BASO % 0.1 % (0.0-1.0); EOS # 0.1 10*3/uL (0.0-0.4); EOS % 0.2 % (1.0-4.0); HEMATOCRIT 43.9 % (42.0-52.0); MEAN CELL VOLUME 86.9 fl (80.0-94.0); MEAN CORPUSCULAR HGB 30.1 pg (27.0-31.0); MEAN CORPUSCULAR HGB CONC 34.6 g/dl (33.0-37.0); MEAN PLATELET VOLUME 9.6 fl (9.6-12.3); MONO # 0.5 10*3/uL (0.1-1.0); MONO % 2.3 % (3.0-9.0); NEUT # 18.3 10*3/uL (2.3-7.9); NEUT % 88.2 % (47.0-73.0); PLATELET COUNT AUTOMATED 349 10*3/uL (130-400); RED BLOOD COUNT 5.05 10*6/uL (4.50-5.90); RED CELL DISTRI WIDTH 13.5 % (0-14.5); WHITE BLOOD COUNT 20.8 10*3/uL (4.8-10.8)
[2025-02-25 08:00] VITALS: BP 128/67
[2025-02-25 09:04] LABS: VITAMIN D, 25-HYDROXY 40.2 ng/mL (30-100)
[2025-02-25] MEDS ORDERED: Enoxaparin Sodium 40 MG/0.4 ML SYR SC SCH (10:00)
[2025-02-25] MEDS ORDERED: LAMOTRIGINE 25 MG TAB PO SCH (10:00)
[2025-02-25] MEDS ORDERED: ASPIRIN, CHEWABLE 81 MG TAB PO SCH (10:00)
[2025-02-25] MEDS ORDERED: METOPROLOL SUCCINATE XR 25 MG TAB PO SCH (10:00)
[2025-02-25] MEDS ORDERED: CITALOPRAM 20 MG TAB PO SCH (10:00)
[2025-02-25 12:00] VITALS: BP 137/79
[2025-02-25] MEDS ORDERED: AZITHROMYCIN 250 MG TAB PO SCH (14:00)
[2025-02-25 16:00] VITALS: BP 144/79
[2025-02-25 20:00] VITALS: BP 138/78
[2025-02-26] VITALS: BP 124/52
[2025-02-26 05:36] LABS: BUN 7 mg/dl (9-23); CHLORIDE 95 mmol/L (98-107)
[2025-02-26 06:18] LABS: HEMATOCRIT 43.9 % (42.0-52.0); MEAN CELL VOLUME 88.3 fl (80.0-94.0); MEAN CORPUSCULAR HGB CONC 33.9 g/dl (33.0-37.0); MEAN PLATELET VOLUME 9.8 fl (9.6-12.3); PLATELET COUNT AUTOMATED 361 10*3/uL (130-400); RED BLOOD COUNT 4.97 10*6/uL (4.50-5.90); RED CELL DISTRI WIDTH 13.3 % (0-14.5); WHITE BLOOD COUNT 19.9 10*3/uL (4.8-10.8)
[2025-02-26 06:23] LABS: MANUAL DIFF REFLEX YES
[2025-02-26] MEDS ORDERED: Regadenoson 0.4 MG/5 ML SYR IV ONE (06:32)
[2025-02-26 06:53] LABS: BURR CELLS FEW; OVALOCYTES FEW; PLATELET SUFFICIENCY NORMAL (NORMAL); POLYCHROMASIA SLIGHT; TOTAL CELLS COUNTED 100 #CELLS
[2025-02-26 08:00] VITALS: BP 112/90
[2025-02-26] MEDS ORDERED: METOPROLOL SUCCINATE XR 25 MG TAB PO SCH (10:00)
[2025-02-26 12:00] VITALS: BP 110/54
[2025-02-26] MEDS ORDERED: METOPROLOL SUCC25 M2 PO (15:57)
[2025-02-26] MEDS ORDERED: ASPIRIN CHILDRE81 MG PO (15:57)
[2025-02-26 16:00] VITALS: BP 128/75
[2025-02-26] MEDS ORDERED: cefTRIAXone Sodium 1 GM in SYRINGE INFUSION 10 ML IV SCH (16:00)
== END 2025-02-26 17:20 | disposition short-term general hospital (02) | DRG 281 ==
LOC: ED 15:54 → EDHOLD 18:25 → 4E 18:25
PROVIDERS: Internal Medicine; Student in an Organized Health Care Education/Training Program; ADMIT Family Medicine; ATTEND Family Medicine
PROC: 4A02XM4 Measurement of Cardiac Total Activity, External Approach (ICD-10-PCS; principal; 2025-02-26)
PROC: 3E073KZ Introduction of Other Diagnostic Substance into Coronary Artery, Percutaneous Approach (ICD-10-PCS; 2025-02-26)
DX: I21.4 Non-ST elevation (NSTEMI) myocardial infarction (principal); E87.1 Hypo-osmolality and hyponatremia; J44.1 Chronic obstructive pulmonary disease with (acute) exacerbation; J98.4 Other disorders of lung; F17.210 Nicotine dependence, cigarettes, uncomplicated; E83.42 Hypomagnesemia; F31.9 Bipolar disorder, unspecified; E78.5 Hyperlipidemia, unspecified; E03.9 Hypothyroidism, unspecified; R73.9 Hyperglycemia, unspecified; F41.9 Anxiety disorder, unspecified; G89.29 Other chronic pain; M54.9 Dorsalgia, unspecified; D72.828 Other elevated white blood cell count; F10.10 Alcohol abuse, uncomplicated; Z88.0 Allergy status to penicillin; Z79.899 Other long term (current) drug therapy; Z79.2 Long term (current) use of antibiotics; Z80.1 Family history of malignant neoplasm of trachea, bronchus and lung; Z80.3 Family history of malignant neoplasm of breast; Z83.3 Family history of diabetes mellitus; Z71.6 Tobacco abuse counseling; Y90.0 Blood alcohol level of less than 20 mg/100 ml

== ENCOUNTER 2025-06-16 10:20 | Emergency (ER) | payer OTHER ==
[~2025-06-16] VITALS: Ht 165.1 cm; Wt 74.8 kg
[~2025-06-16 10:20] MED LIST changes: +ARIPIPRAZOLE15 MG PO; +ASPIRIN CHILDRE81 MG PO; +CITALOPRAM20 MG PO; +LAMICTAL25 MG PO; +METOPROLOL SUCC25 M2 PO; +PRAVASTATIN SOD20 MG PO; +TRAZODONE100 MG PO
[2025-06-16 11:31] LABS: BASO # 0.1 10*3/uL (0.0-0.1); BASO % 0.7 % (0.0-1.0); EOS # 0.2 10*3/uL (0.0-0.4); EOS % 2.0 % (1.0-4.0); MEAN CELL VOLUME 88.7 fl (80.0-94.0); MEAN CORPUSCULAR HGB 29.9 pg (27.0-31.0); MEAN PLATELET VOLUME 8.5 fl (9.6-12.3); MONO # 0.7 10*3/uL (0.1-1.0); MONO % 5.8 % (3.0-9.0); NEUT # 6.4 10*3/uL (2.3-7.9); NEUT % 56.6 % (47.0-73.0); NUCLEATED RED BLOOD CELL 0.0 % (0.0-0.0); NUCLEATED RED BLOOD CELL 0.0 10*3/uL (0.0-0.0); PLATELET COUNT AUTOMATED 310 10*3/uL (130-400); RED CELL DISTRI WIDTH 12.5 % (0-14.5)
[2025-06-16 11:52] LABS: SGPT/ALT 28 U/L (5-49)
[2025-06-16 12:05] LABS: BUN < 5 mg/dl (9-23)
== END 2025-06-16 15:22 | disposition home or self-care (01) ==
LOC: ED 10:20
PROVIDERS: Student in an Organized Health Care Education/Training Program
DX: R11.10 Vomiting, unspecified (principal); F12.90 Cannabis use, unspecified, uncomplicated; Z88.0 Allergy status to penicillin; Z79.899 Other long term (current) drug therapy; Z79.82 Long term (current) use of aspirin; Z98.890 Other specified postprocedural states

== ENCOUNTER 2025-08-09 19:03 | Emergency (ER) | payer OTHER ==
[~2025-08-09] VITALS: Ht 4876 cm; Wt 72.6 kg
[2025-08-09] MEDS ORDERED: predniSONE 20 MG TAB PO ONE (21:25)
[2025-08-09] MEDS ORDERED: MEDROL DOSEPAK4 MG PO (21:25)
[2025-08-09] MEDS ORDERED: AZITHROMYCIN 250 MG TAB PO ONE (21:25)
[2025-08-09] MEDS ORDERED: ZITHROMAX250 MG PO (21:25)
== END 2025-08-09 21:27 | disposition home or self-care (01) ==
LOC: ED 19:03
DX: J04.0 Acute laryngitis (principal); J20.9 Acute bronchitis, unspecified; F17.200 Nicotine dependence, unspecified, uncomplicated; Z88.0 Allergy status to penicillin; Z79.899 Other long term (current) drug therapy; Z79.82 Long term (current) use of aspirin; Z98.890 Other specified postprocedural states